=== PATIENT | female | born 2000 | race Caucasian/White ===

== ENCOUNTER 2024-05-28 17:22 | Inpatient (IN) | payer OTHER ==
[2024-05-28] MEDS ORDERED: TRANEXAMIC 1,000 MG/100ML-NACL 1,000 MG in EMPTY BAG 1 BAG IV PRN (17:46)
[2024-05-28] MEDS ORDERED: CARBOPROST TROMETHAMINE 250 MCG/ML 1 ML AMP IM PRN (17:46)
[2024-05-28] MEDS ORDERED: OXYTOCIN 10 UNIT/ML 1 ML VIAL IM PRN (17:46)
[2024-05-28] MEDS ORDERED: miSOPROStoL 200 MCG TAB PO PRN (17:46)
[2024-05-28 17:59] LABS: Basophils % (A) 0 %; Eosinophils # (A) 0.1 k/uL (0-0.7); Eosinophils % (A) 1 %; HCT 38.2 % (34.0-46.0); HGB 12.7 gm/dL (11.4-16.0); Lymphocytes % (A) 16 %; MCH 29.5 pg (25.0-35.0); MCHC 33.3 g/dL (31.0-37.0); MCV 88.7 fL (80.0-100.0); Mean Platelet Volume 8.4; Monocytes # (A) 0.8 k/uL (0-1.0); Monocytes % (A) 7 %; Neutrophils # (A) 8.8 k/uL (1.3-7.7); Neutrophils % (A) 73 %; Platelet Count 233 k/uL (150-450); RDW 13.4 % (11.5-15.5)
[2024-05-28] MEDS: CITRIC ACID-SODIUM CITRATE 15 ML CUP PO ONE (18:06)
[2024-05-28] MEDS: LACTATED RINGERS 1,000 ML BAG IV STA (18:08)
[2024-05-29] MEDS: PRENATAL VIT-IRON-FOLIC ACID 1 EACH TABLET PO SCH (08:35)
[2024-05-29] MEDS ORDERED: NALOXONE 0.4 MG/ML 1 ML VIAL IV PRN ×2 (08:50→10:46)
[2024-05-29] MEDS: CITRIC ACID-SODIUM CITRATE 15 ML CUP PO ONE (08:58)
[2024-05-29] MEDS ORDERED: NALBUPHINE 10 MG/ML (10 ML MDV) ONE (09:53)
[2024-05-29] MEDS ORDERED: ONDANSETRON 4 MG/2 ML VIAL ONE (09:53)
[2024-05-29] MEDS ORDERED: ePHEDrine 50 MG/ML 1 ML VIAL ONE (09:53)
[2024-05-29] MEDS ORDERED: OXYTOCIN 30 UNITS/500 ML NS BAG IV ONE (09:53)
[2024-05-29] MEDS ORDERED: MORPHINE SULFATE (PF) 0.3 MG/0.3 ML SYR ONE (09:53)
[2024-05-29] MEDS ORDERED: PHENYLEPHRINE-0.9% NACL SYG 1,000 MCG/10 ML SYRINGE ONE (09:53)
[2024-05-29] MEDS ORDERED: ONDANSETRON 4 MG/2 ML VIAL IVP PRN (10:46)
[2024-05-29] MEDS ORDERED: METOCLOPRAMIDE 5 MG/ML 2 ML VIAL IVP PRN (10:46)
[2024-05-29] MEDS ORDERED: SIMETHICONE 80 MG CHEWABLE PO PRN (10:46)
[2024-05-29] MEDS ORDERED: diphenhydrAMINE 25 MG CAP PO PRN (10:46)
[2024-05-29] MEDS ORDERED: ZOLPIDEM 5 MG TAB PO PRN (10:46)
[2024-05-29] MEDS ORDERED: diphenhydrAMINE 50 MG/ML 1 ML VIAL IVP PRN ×2 (10:46)
--- NOTE | 2024-05-29 10:52 | P.HPOB ---
History of Present Illness H&P Date: 05/28/24 Chief Complaint: IUP at 40 and 1 sevenths weeks, LGA, polyhydramnios This is a 23-year-old 1 para 0 at 40 and 1 sevenths weeks that presents to labor and delivery from the office. Patient has been receiving routine care with myself which has been essentially uncomplicated. Ultrasound was performed today revealing a estimated weight of 9 pounds 5 ounces, 40 to 20 g, JANINE of 28 consistent with polyhydramnios. Patient was counseled on ultrasound findings and options for delivery. After full discussion patient elected primary . On blood work she has a blood type of O positive, rubella immune, HIV neg, RPR NR, GBS neg. Review of Systems Constitutional: Denies chills, Denies fatigue, Denies fever Ears, nose, mouth and throat: Denies headache Cardiovascular: Reports leg edema Respiratory: Denies dyspnea Gastrointestinal: Denies constipation, Denies diarrhea, Denies nausea, Denies vomiting Genitourinary: Reports Past Medical History Past Medical History: No Reported History History of Any Multi-Drug Resistant Organisms: None Reported Past Surgical History: No Surgical Hx Reported Past Anesthesia/Blood Transfusion Reactions: No Reported Reaction Past Psychological History: No Psychological Hx Reported Smoking Status: Former smoker Past Alcohol Use History: None Reported Past Drug Use History: None Reported - Past Family History Father Family Medical History: No Reported History Medications and Allergies Home Medications Medication Instructions Recorded Confirmed Type Aspirin [[place] Aspirin EC] 1 tab PO DAILY 05/28/24 05/28/24 History Vit No.179/Iron/Folic 1 tab PO DAILY 05/28/24 05/28/24 History [ Tablet] Allergies Allergy/AdvReac Type Severity Reaction Status Date / Time No Known Allergies Allergy Verified 05/28/24 17:45 Exam Osteopathic Statement: *. No significant issues noted on an osteopathic structural exam other than those noted in the History and Physical/Consult. Vital Signs Temp Pulse Resp BP 05/28/24 17:54 98.9 F 96 16 141/85 Intake and Output 05/28/24 05/28/24 05/28/24 06:59 14:59 22:59 Other: Weight 120.202 kg Targeted physical exam is performed on this date, in General this is a well-nourished well-developed female in no acute distress, breathing is noted be nonlabored, heart has a regular rhythm, abdomen is gravid, on cervical exam she is fingertip/60/-3 station and feels ballotable. heart tones are noted to be category 1 and she is not nando. Results Result Diagrams: 05/28/24 17:46 Abnormal Lab Results - Last 24 Hours (Table) 05/28/24 Range/Units 17:46 WBC 12.0 H (3.8-10.6) k/uL Neutrophils # 8.8 H (1.3-7.7) k/uL Assessment and Plan (1) Post-dates Current Visit: Yes Status: Acute Code(s): O48.0 - POST-TERM SNOMED Code(s): 53566012 (2) Polyhydramnios Current Visit: Yes Status: Acute Code(s): O40.9XX0 - POLYHYDRAMNIOS, UNSP TRIMESTER, NOT APPLICABLE OR UNSP SNOMED Code(s): 30546727 (3) LGA (large for gestational age) fetus Current Visit: Yes Status: Acute Code(s): DUY2639 - SNOMED Code(s): 486308497 Plan: 23-year-old 1 para 0 at 40 and 1 sevenths weeks that presents for primary . Patient had an ultrasound performed today revealing an estimated weight of 9 pounds 5 ounces, JANINE of 28. Patient was counseled on ultrasound findings and cervical exam. After complete discussion and options patient elects primary . section was discussed risks were reviewed and patient stated understanding.
[2024-05-29] MEDS: METHYLERGONOVINE 0.2 MG/ML 1 ML AMP IM PRN (11:11)
[2024-05-29] MEDS: miSOPROStoL 200 MCG TAB RECTAL STA (11:45)
--- NOTE | 2024-05-29 11:57 | P.OP ---
Date of Procedure: 05/28/24 Preoperative Diagnosis: IUP at 40 1/7 weeks, LGA 4220 gms., polyhydramnios Postoperative Diagnosis: same Procedure(s) Performed: primary low transverse section. Anesthesia: spinal Surgeon: Luisana Cheung Working Manager #1: Arlen Bird Estimated Blood Loss (ml): 1,059 IV fluids (ml): 1,000 Urine output (ml): 100 (clear ywllow) Pathology: none sent Condition: stable Disposition: observation Indications for Procedure: 23 yo at 402/7 weeks that presents for primary section secondary to LGA 4220, and polyhydramnios. She was counseled on options, and she elected LTCS. Operative Findings: vaible male infant delivered at 1014, weight 10-5 4690, apgars 9/10, arcuate uterus appreciated with normal ovaries b/l. Description of Procedure: The patient was prepped and draped in the usual fashion after spinal anesthesia was administered by the seizure department. A Pfannenstiel incision was made and extended of the abdominal cavity without difficulty. The bladder peritoneum was elevated and incised and reflected distally. A 2 cm incision was made in the transverse plane of the lower uterine segment to enter the uterus at which time clear fluid was noted. The incision was extended in both directions only the head was encountered within the field and delivered up and through the incision where the nose and mouth were thoroughly suctioned. Remainder of the was delivered onto the surgical field where the cord was doubly clamped, cut, and the was passed for resuscitative measures with weight and Apgars as noted above. A segment of cord was then doubly clamped, cut, and set aside should cord gases become necessary. The placenta was delivered manually, intact, and was grossly normal with a grossly normal three-vessel cord. The uterus was exteriorized and the interior cavity of the uterus swept of any remaining placental and membranous fragments with a laparotomy sponge. The margins of the incision were grasped with Allis clamps and the incision closed in 2 layers. First layer was a running locking layer of 0 Vicryl from margin to margin followed by a second layer of imbricating 0 Vicryl from margin to margin. Any small points of bleeding were then made hemostatic with the Bovie. Once hemostasis was achieved, the posterior cul-de-sac was suctioned with a guard and the uterine and ovarian findings are as noted above. The uterus was replaced within the abdominal cavity and the gutters swept of any remaining blood fluid or clot. The incision was again reexamined and hemostasis was noted to be excellent. Any small point of bleeding were made hemostatic with the Bovie. Once hemostasis was achieved the parietal peritoneum was loosely reapproximated. The layer of muscles were examined and made hemostatic with the Bovie. Attention was then turned to the fascia which was closed with 0 Vicryl in a running fashion from 1 lateral edge to the other.. The subcutaneous tissues were irrigated, made hemostatic with the Bovie, and reapproximated with a running stitch of 30 Vicryl. The skin was reapproximated with 4-0 Vicryl. Estimated blood loss for the case was approximately 1059mL. All sponge instrument and needle counts are correct. There were no complications. The patient tolerated the procedure well and proceeded to the recovery room in stable condition. Both mother and infant are resting comfortably in recovery.
--- NOTE | 2024-05-29 11:59 | P.PN ---
Progress Note - Text Progress Note Date: 05/29/24 Called to room per RN for increased bleeding. Uterus noted to be atonic in between fundal checks, despite Methergine. Yee remains draining clear yellow urine. On vaginal exam uterus was noted to be full of clots, with fundal massage and vaginal exam clots were expressed. Uterus noted to be firmed. Cytotec was placed rectally. Vital signs noted to be stable Uterus noted to be firm and below the umbilicus Cervix dilated to 1 cm, multiple clots expressed with fundal massage, bleeding had slowed after expression of clots Assessment Postop day 0 status post primary , LGA, polyhydramnios hemorrhage Plan Rectal Cytotec is placed IV antibiotics, 2 G Every 8 Hours x 24 Hours Given Manual Extraction of Clots CBC at 1600
[2024-05-29] MEDS: ACETAMINOPHEN IV (For NPO) 1,000 MG in EMPTY BAG 1 BAG IVPB SCH (13:05)
[2024-05-29] MEDS: ACETAMINOPHEN TAB 500 MG TAB PO SCH (16:00)
[2024-05-29 16:06] VITALS: RESP 16
[2024-05-29] MEDS: IBUPROFEN IV 800 MG in SODIUM CHLORIDE 0.9% 250 ML IV SCH (16:47)
[2024-05-29] MEDS: LACTATED RINGERS 1,000 ML IV SCH (16:49)
[2024-05-29 17:35] LABS: Basophils % (A) 0 %; Eosinophils % (A) 0 %; Lymphocytes # (A) 1.3 k/uL (1.0-4.8); Lymphocytes % (A) 9 %; MCH 30.3 pg (25.0-35.0); MCHC 33.6 g/dL (31.0-37.0); MCV 90.3 fL (80.0-100.0); Mean Platelet Volume 8.2; Monocytes # (A) 0.8 k/uL (0-1.0); Monocytes % (A) 5 %; Neutrophils # (A) 12.5 k/uL (1.3-7.7); Neutrophils % (A) 84 %; Platelet Count 199 k/uL (150-450); RDW 13.6 % (11.5-15.5); WBC 14.9 k/uL (3.8-10.6)
[2024-05-29 17:43] LABS: HGB 9.4 gm/dL (11.4-16.0)
[2024-05-29] MEDS: IBUPROFEN 600 MG TAB PO SCH (19:04)
[2024-05-29] MEDS: SENNOSIDES-DOCUSATE SODIUM 1 EACH TAB PO SCH (22:08)
--- NOTE | 2024-05-30 06:14 | P.PN ---
Progress Note - Text Progress Note Date: 05/30/24 Patient doing well. Ambulating w/o paresthesia or weakness. Denies headache. Pain well controlled. Pt is experiencing urinary retention w/ need for 1 straight cath thus far. Encouraged pt to ambulate and retention will resolve over time. Back - spinal site clean and dry A/P POD#1 s/p w/ spinal duramorph - continue periodic staight cath until resolution of urinary retention - encourage ambulation
[2024-05-30 06:22] LABS: Basophils % (A) 0 %; Eosinophils # (A) 0.1 k/uL (0-0.7); Eosinophils % (A) 1 %; HCT 23.6 % (34.0-46.0); HGB 8.3 gm/dL (11.4-16.0); Lymphocytes # (A) 1.9 k/uL (1.0-4.8); Lymphocytes % (A) 14 %; MCHC 35.4 g/dL (31.0-37.0); MCV 87.8 fL (80.0-100.0); Mean Platelet Volume 8.4; Monocytes # (A) 0.8 k/uL (0-1.0); Monocytes % (A) 6 %; Neutrophils # (A) 10.5 k/uL (1.3-7.7); Neutrophils % (A) 78 %; Platelet Count 201 k/uL (150-450); RBC 2.68 m/uL (3.80-5.40); WBC 13.4 k/uL (3.8-10.6)
[2024-05-30] MEDS: diphenhydrAMINE 50 MG CAP PO PRN (06:53)
--- NOTE | 2024-05-30 10:08 | P.PNOBGPC ---
Subjective - Subjective Principal diagnosis: Postop day 1, primary Interval history: Patient is doing well overall. She is ambulating and voiding without difficulty. She is tolerating a regular diet without nausea or vomiting. She states her pain is well-controlled. Lochia is minimal. Patient reports: Reports appetite normal, Reports voiding normally, Reports pain well controlled, Reports ambulating normally [place]: doing well Objective - Vital Signs Latest vital signs: Vital Signs Temp Pulse Resp BP Pulse Ox 05/30/24 08:00 97.7 F 82 16 99/60 98 05/30/24 00:00 98.9 F 91 16 105/69 98 05/29/24 22:00 16 05/29/24 20:00 98.2 F 92 16 117/73 98 05/29/24 18:00 16 05/29/24 16:02 98.5 F 85 16 109/69 95 05/29/24 16:00 16 05/29/24 14:00 18 05/29/24 13:45 97.0 F L 113 H 18 117/55 100 05/29/24 13:30 16 114/55 99 05/29/24 13:15 97 18 119/58 100 05/29/24 13:00 99 18 121/63 97 05/29/24 12:45 87 18 110/65 95 05/29/24 12:30 88 16 113/66 95 05/29/24 12:15 81 16 110/59 98 05/29/24 12:00 86 18 111/61 96 05/29/24 11:45 94 18 111/61 100 05/29/24 11:30 88 16 05/29/24 11:15 108 H 18 110/58 98 05/29/24 11:00 113 H 18 107/52 96 05/29/24 10:47 18 05/29/24 10:45 96.0 F L 109 H 18 114/77 99 Intake and Output 05/29/24 05/30/24 05/30/24 22:59 06:59 14:59 Output Total 450 1200 850 Balance -450 -1200 -850 Output: Urine 450 1200 850 Uretheral (Yee) 300 Other: # Voids 0 1 - Exam Extremities: Present: normal, edema Abdomen: Present: normal appearance, soft Incision: Present: normal, dry Uterus: Present: normal, firm - Labs Labs: Abnormal Lab Results - Last 24 Hours (Table) 05/29/24 05/30/24 Range/Units 16:35 06:06 WBC 14.9 H 13.4 H (3.8-10.6) k/uL RBC 3.10 L 2.68 L (3.80-5.40) m/uL Hgb 9.4 L D 8.3 L (11.4-16.0) gm/dL Hct 28.0 L 23.6 L (34.0-46.0) % Neutrophils # 12.5 H 10.5 H (1.3-7.7) k/uL Assessment and Plan (1) Post-dates Current Visit: Yes Status: Acute Code(s): O48.0 - POST-TERM SNOMED Code(s): 85125368 (2) Polyhydramnios Current Visit: Yes Status: Acute Code(s): O40.9XX0 - POLYHYDRAMNIOS, UNSP TRIMESTER, NOT APPLICABLE OR UNSP SNOMED Code(s): 75041760 (3) LGA (large for gestational age) fetus Current Visit: Yes Status: Acute Code(s): HGA8249 - SNOMED Code(s): 135936642 (4) Status post section Current Visit: Yes Status: Acute Code(s): Z98.891 - HISTORY OF UTERINE SCAR FROM PREVIOUS SURGERY SNOMED Code(s): 370002911 Plan: Patient is doing well postoperatively. Plan to continue routine postoperative care and anticipate discharge home tomorrow.
--- NOTE | 2024-05-31 05:31 | P.DS ---
Providers Date of admission: 05/28/24 17:22 Expected date of discharge: 05/31/24 Attending physician: Luisana Cheung Primary care physician: Stated None - Discharge Diagnosis(es) (1) Post-dates Current Visit: Yes Status: Acute (2) Polyhydramnios Current Visit: Yes Status: Acute (3) LGA (large for gestational age) fetus Current Visit: Yes Status: Acute (4) Status post section Current Visit: Yes Status: Acute Hospital Course: This is a 23-year-old 1 now para 1 that presented to labor and delivery on 05/28 for primary low-transverse section secondary to LGA and polyhydramnios. Patient has been receiving routine care which has been complicated by diagnosis of polyhydramnios. Patient was seen in the office the day prior ultrasound was performed as she was 40-2/7 weeks, estimated weight 4220gms, JANINE of 28 was appreciated. Patient was counseled on options given weight patient elected primary . Patient was taken back to the operating suite where viable male was delivered at 1014, weight of 10 pounds 5 ounces or 4690 g. For full details on the please see the dictated operative report. Patient's postoperative course has been uneventful. In this postoperative day #2 she is ambulating and voiding without difficulty. She is tolerating a regular diet without nausea or vomiting. States her pain is well-controlled. She denies concerns. She would like discharge home today. Patient Condition at Discharge: Good Plan - Discharge Summary New Discharge Prescriptions: No Action Vit No.179/Iron/Folic [ Tablet] 1 tab PO DAILY Aspirin [[place] Aspirin EC] 1 tab PO DAILY Discharge Medication List Aspirin [[place] Aspirin EC] 1 tab PO DAILY 05/28/24 [History] Vit No.179/Iron/Folic [ Tablet] 1 tab PO DAILY 05/28/24 [Hi story] Follow up Appointment(s)/Referral(s): Luisana Cheung DO [Doctor of Osteopathic Medicine] - 06/10/24 2:45 pm (Post 07-09-2024 at 1:30pm) Patient Instructions/Handouts: (DC), (GEN) Activity/Diet/Wound Care/Special Instructions: No intercourse, tampons or tub baths. No driving for two weeks. Call with any fever, shakes or chills, with any pain not alleviated by over the counter meds, or with any questions or concerns. Tosu-jdn-cjaglna ibuprofen 600 mg or 3 tablets every 6 hours as needed for pain. Discharge Disposition: HOME SELF-CARE
[2024-05-31 09:37] VITALS: BP 122/73; PULSE 88; TEMP 98.7
--- NOTE | 2024-06-15 17:00 | CDI ---
Documentation Clarification Form Date: 06/15/2024 04:34:56 PM From: Sandra Salas Admit Date: 05/28/2024 05:22:00 PM Patient Name: Erlinda Mendoza Visit Number: [id number] Discharge Date: 05/31/2024 02:34:00 PM ATTENTION: The Clinical Documentation Specialists (CDI) and [facility] Coding Staff appreciate your assistance in clarifying documentation. Please respond to the clarification below the line at the bottom and electronically sign. The CDI & [facility] Coding staff will review the response and follow-up if needed. Please note: Queries are made part of the Legal Health Record. If you have any questions, please contact the author of this message via ITS. Doctor/Provider: Luisana Cheung Your patient has a hemoglobin/hematocrit level of 8.3/23.6 on 05/30/24. Please clarify if there is an additional diagnosis and/or clinical significance related to these lab values. History/Risk Factors: patient is a 23 year old 1 para 0 who is 40 1/7 weeks . Clinical indicators: patient presented to L&D after ultrasound revealed estimated weight of 9lbs 5 ozs. Patient elected to undergo primary C- Section. Delivered a 10 lb 5oz . Estimated blood loss 1,059 ml. 05/29 Progress Note: patient was having bleeding, uterus was noted to be atonic in between fundal checks. Was given methergine, cytotec placed rectally, fundal massage, and vaginal exam with clots expressed. Bleeding slowed after expression of clots. Diagnosed with hemorrhage. Treatment: methergine, fundal massage with vaginal exam and expression of clots, cytotec was placed rectally, IV antibiotics 2 G every 8 hours x 24 hours given manual extraction of clots. Monitored CBC HGB 05/28 12.7, 05/29 9.4, 05/30 8.3 HCT 05/28 38.2, 05/29 38.0, 05/30 23.6 Is there an additional diagnosis and/or clinical significance related to the above lab result/information: [ x] Acute blood loss anemia [ ] No additional diagnosis/Not clinically significant [ ] Unable to determine [ ] Other, please specify MTDD
== END 2024-05-31 14:34 | disposition home or self-care (01) | DRG 787 ==
LOC: 4FBP 17:22
PROVIDERS: ADMIT Obstetrics & Gynecology Obstetrics; ATTEND Obstetrics & Gynecology Obstetrics
PROC: 10D00Z1 Extraction of Products of Conception, Low, Open Approach (ICD-10-PCS; principal; 2024-05-28)
DX: O40.3XX0 Polyhydramnios, third trimester, not applicable or unspecified (principal); D62 Acute posthemorrhagic anemia; O72.1 Other immediate postpartum hemorrhage; O48.0 Post-term pregnancy; O36.63X0 Maternal care for excessive fetal growth, third trimester, not applicable or unspecified; O34.03 Maternal care for unspecified congenital malformation of uterus, third trimester; O90.81 Anemia of the puerperium; O99.892 Other specified diseases and conditions complicating childbirth; R33.9 Retention of urine, unspecified; Q51.810 Arcuate uterus; Z28.310 Unvaccinated for COVID-19; Z87.891 Personal history of nicotine dependence; Z79.82 Long term (current) use of aspirin; Z3A.40 40 weeks gestation of pregnancy; Z37.0 Single live birth
CPT/HCPCS: 85025; 86850; 86900; 86901